=== PATIENT | female | born 2000 | race Two or more races ===

== ENCOUNTER 2018-11-19 15:51 | Emergency (ER) | payer OTHER ==
[~2018-11-19] VITALS: Ht 154.9 cm; Wt 57.6 kg
[2018-11-19 16:25] VITALS: BP 125/72
== END 2018-11-19 17:58 | disposition home or self-care (01) ==
LOC: ER 16:00
DX: S61.012A Laceration without foreign body of left thumb without damage to nail, initial encounter (principal); J45.909 Unspecified asthma, uncomplicated; W26.8XXA Contact with other sharp object(s), not elsewhere classified, initial encounter; Y93.89 Activity, other specified; Y92.69 Other specified industrial and construction area as the place of occurrence of the external cause; Y99.8 Other external cause status
CPT/HCPCS: 12001